=== PATIENT | female | born 1995 | race Caucasian/White ===

== ENCOUNTER 2016-09-13 17:36 | Inpatient (IN) | payer OTHER ==
[~2016-09-13] VITALS: Ht 149.9 cm; Wt 66.7 kg
[2016-09-13] MEDS ORDERED: OXYTOCIN 10 UNITS/ML VIAL IM SCH (18:40)
[2016-09-13] MEDS ORDERED: OXYTOCIN 20 UNITS/LR PREMIX 1,000 ML IV SCH (18:40)
[2016-09-13] MEDS: LACTATED RINGERS 1,000 ML IV SCH (20:15)
[2016-09-13] MEDS ORDERED: NALBUPHINE HYDROCHLORIDE 10 MG/ML VIAL IVP PRN (20:25)
[2016-09-13] MEDS ORDERED: MISOPROSTOL 25 MCG TAB VG PRN (20:25)
[2016-09-13] MEDS ORDERED: CARBOPROST 250 MCG/ML AMP IM PRN (20:25)
[2016-09-13] MEDS ORDERED: METHYLERGONOVINE 0.2 MG/ML AMP IM PRN (20:25)
[2016-09-13] MEDS ORDERED: PROMETHAZINE 25 MG/ML VIAL IVP PRN (20:25)
[2016-09-13] MEDS ORDERED: PRENATAL PLUS I1 TAB PO (20:33)
[2016-09-13] MEDS ORDERED: MISOPROSTOL 25 MCG TAB ONE (20:52)
[2016-09-14] MEDS ORDERED: MISOPROSTOL 25 MCG TAB ONE ×3 (01:11→09:25)
[2016-09-14] MEDS: LACTATED RINGERS 1,000 ML IV SCH ×2 (04:00→12:12)
--- NOTE | 2016-09-14 08:24 | NUR ---
PATIENT HAS BEEN SCREENED AND CATEGORIZED LOW NUTRITION RISK. PATIENT WILL BE SEEN WITHIN 7 DAYS OF ADMISSION. 09/20/[address]
[2016-09-14] MEDS ORDERED: OXYTOCIN 20 UNITS/LR PREMIX 1,000 ML IV ONE (14:01)
[2016-09-14] MEDS ORDERED: NALBUPHINE HYDROCHLORIDE 10 MG/ML VIAL ONE (14:08)
[2016-09-14] MEDS ORDERED: PROMETHAZINE 25 MG/ML VIAL ONE (14:08)
[2016-09-14] MEDS ORDERED: CITRIC ACID/SODIUM CITRATE 30 ML UDC PO SCH (18:00)
[2016-09-14] MEDS ORDERED: OXYTOCIN 10 UNITS/ML VIAL ONE ×2 (18:26→20:20)
[2016-09-14] MEDS ORDERED: CITRIC ACID/SODIUM CITRATE 30 ML UDC ONE (18:31)
[2016-09-14] MEDS ORDERED: ceFAZolin 1,000 MG VIAL ONE ×2 (19:40→20:20)
[2016-09-14] MEDS ORDERED: MORPHINE PRES FREE 10 MG/10 ML AMP IV ONE (19:59)
[2016-09-14] MEDS ORDERED: MORPHINE SULFATE 4 MG/ML SYR IM/IVP PRN (20:00)
[2016-09-14] MEDS ORDERED: ONDANSETRON 4 MG/2 ML VIAL IVP PRN ×2 (20:00→20:45)
[2016-09-14] MEDS ORDERED: ACETAMINOPHEN/CODEINE 300/30MG 1 TAB PO PRN (20:00)
[2016-09-14] MEDS ORDERED: METHYLERGONOVINE 0.2 MG/ML AMP ONE ×2 (20:20→20:41)
[2016-09-14] MEDS ORDERED: ONDANSETRON 4 MG/2 ML VIAL ONE (20:20)
[2016-09-14] MEDS ORDERED: BUPIVACAINE-MPF 0.75% 10 ML VIAL INJ ONE (20:20)
[2016-09-14] MEDS ORDERED: KETOROLAC 30 MG/ML VIAL ONE (20:20)
[2016-09-14] MEDS ORDERED: NALOXONE 0.4 MG/ML VIAL IVP PRN ×2 (20:45)
[2016-09-14] MEDS ORDERED: diphenhydrAMINE 50 MG/ML VIAL IVP PRN (20:45)
[2016-09-14] MEDS ORDERED: OXYTOCIN 20 UNITS/LR PREMIX 1,000 ML IV SCH (20:45)
[2016-09-14] MEDS ORDERED: KETOROLAC 30 MG/ML VIAL IVP PRN (20:45)
[2016-09-15] MEDS ORDERED: TEMAZEPAM 15 MG CAP PO PRN (01:10)
[2016-09-15] MEDS ORDERED: HYDROcodone/APAP 5/325 MG 1 TAB TAB PO PRN (01:10)
[2016-09-15] MEDS ORDERED: MEASLES, MUMPS, AND RUBELLA 1 VIAL SQVAC PRN (01:10)
[2016-09-15] MEDS ORDERED: METHYLERGONOVINE 0.2 MG/ML AMP IM PRN (01:10)
[2016-09-15] MEDS ORDERED: TRIMETHOBENZAMIDE 200 MG/2 ML SYR IM PRN (01:10)
[2016-09-15] MEDS: OXYTOCIN 20 UNITS/LR PREMIX 1,000 ML IV SCH ×2 (04:41→13:34)
[2016-09-15] MEDS: IBUPROFEN 800 MG TAB PO PRN (18:59)
[2016-09-15] MEDS: SIMETHICONE 80 MG TAB.CHEW PO PRN (21:23)
[2016-09-15] MEDS: DOCUSATE SOD/SENNA 50/8.6 MG 1 TAB PO SCH (21:24)
[2016-09-16] MEDS: IBUPROFEN 800 MG TAB PO PRN ×2 (03:45→10:34)
[2016-09-16] MEDS ORDERED: INFLUENZA VIRUS VACCINE QUAD 0.5 ML SYR IMVAC SCH (04:50)
[2016-09-16] MEDS: oxyCODONE/APAP 5/325 MG 1 TAB TAB PO PRN (20:40)
[2016-09-16] MEDS: DOCUSATE SOD/SENNA 50/8.6 MG 1 TAB PO SCH (20:42)
[2016-09-17] MEDS: oxyCODONE/APAP 5/325 MG 1 TAB TAB PO PRN ×2 (08:03→14:40)
[2016-09-17] MEDS: SIMETHICONE 80 MG TAB.CHEW PO PRN (08:04)
== END 2016-09-17 16:30 | disposition home or self-care (01) | DRG 540 ==
LOC: MLD 17:36 → MFCC 09-14 21:46
PROVIDERS: ADMIT Obstetrics & Gynecology; ATTEND Obstetrics & Gynecology
PROC: 3E0P7GC Introduction of Other Therapeutic Substance into Female Reproductive, Via Natural or Artificial Opening (ICD-10-PCS; 2016-09-13)
PROC: 10D00Z1 Extraction of Products of Conception, Low, Open Approach (ICD-10-PCS; principal; 2016-09-14 18:30)
DX: O76 Abnormality in fetal heart rate and rhythm complicating labor and delivery (principal); O61.9 Failed induction of labor, unspecified; Z37.0 Single live birth; Z3A.39 39 weeks gestation of pregnancy

== ENCOUNTER 2018-09-01 15:51 | Emergency (ER) | payer SELFPAY ==
[~2018-09-01] VITALS: Ht 149.9 cm; Wt 52.2 kg
[~2018-09-01 15:51] MED LIST: PNV1TABL8 PO
[2018-09-01 16:10] VITALS: BP 94/48
--- NOTE | 2018-09-01 16:10 | NUR ---
PATIENT TRIAGED. VSS, SENT TO ER LOBBY.
--- NOTE | 2018-09-01 16:11 | NUR ---
PT UNABLE TO PROVIDE URINE AT THIS TIME, GIVEN WATER AND URINE CUP.
--- NOTE | 2018-09-01 16:42 | NUR ---
PT AMBULATES TO BED 3
--- NOTE | 2018-09-01 16:50 | NUR ---
PT C/O /ABD PAIN SINCE LAST NIGHT. REPORTS 4/10 CRAMPING ABD PAIN. PT STATES THAT SHE IS BUT IS UNSURE OF LMP AND # OF WEEKS . . PT DENIES N/V/D; AAOX4, PERRL, WITH EVEN AND STEADY GAIT; LUNGS CLEAR BL, BREATHING UNLABORED; HR EVEN AND REGULAR, BL PERIPHERAL PULSES PRESENT; BS ACTIVE X4. PT DENIES ANY FEVER, CP, SOB, OR COUGH AT THIS TIME; PT STATES 4/10 PAIN AT THIS TIME; VSS; PATIENT POSITIONED FOR COMFORT; HOB ELEVATED; BEDRAILS UP X2; BED DOWN. NO PMH NKA
[2018-09-01 17:44] LABS: BASOPHILS # (AUTO) 0.1 K/uL (0.00-0.22); BASOPHILS % (AUTO) 0.8 % (0.0-2.0); EOSINOPHILS % (AUTO) 0.7 % (0.0-4.0); HEMATOCRIT 39.1 % (36-48); HEMOGLOBIN 13.1 g/dL (12.0-16.0); LYMPHOCYTES # (AUTO) 2.2 K/uL (2.5-16.5); LYMPHOCYTES % (AUTO) 31.5 % (20.5-51.1); MEAN CORPUSCULAR HEMOGLOBIN 30 pg (27-31); MEAN CORPUSCULAR HGB CONC 34 g/dL (33-37); MEAN CORPUSCULAR VOLUME 90.4 fL (80-94); MONOCYTES # (AUTO) 0.6 K/uL (0.8-1.0); MONOCYTES % (AUTO) 7.8 % (1.7-9.3); NEUTROPHILS # (AUTO) 4.2 K/uL (1.8-7.7); NEUTROPHILS % (AUTO) 59.2 % (42.2-75.2); PLATELET COUNT (AUTO) 181 K/uL (140-450); RED BLOOD CELL COUNT(AUTO) 4.33 MIL/uL (4.20-5.40); RED CELL DISTRIBUTION WIDTH 12.3 % (11.6-13.7); WHITE BLOOD COUNT (AUTO) 7.1 K/uL (4.8-10.8)
[2018-09-01 18:53] LABS: BILIRUBIN,URINE NEGATIVE (NEGATIVE); BLOOD, URINE 1+ (NEGATIVE); COLOR,URINE YELLOW (YELLOW); LEUKOCYTE ESTERASE ,URINE NEGATIVE (NEGATIVE); NITRITE, URINE POSITIVE (NEGATIVE); PH,URINE 6.5 (5.0-9.0); UGLUCOSE NEGATIVE (NEGATIVE)
[2018-09-01 18:55] LABS: APPEARANCE,URINE SLIGHTLY CLOUDY (CLEAR)
[2018-09-01 19:03] LABS: RBC,URINE 3-10 (FEW) /HPF (0-5)
--- NOTE | 2018-09-01 19:15 | NUR ---
Patient discharged with v/s stable. Written and verbal after care instructions given and explained. Patient alert, oriented and verbalized understanding of instructions. Ambulatory with steady gait. All questions addressed prior to discharge. ID band removed. Patient advised to follow up with PMD. Rx of [facility] Multi+DHA Softgel given. Patient educated on indication of medication including possible reaction and side effects. Opportunity to ask questions provided and answered.
[2018-09-01 19:20] VITALS: BP 102/69
== END 2018-09-01 19:20 | disposition home or self-care (01) ==
LOC: MED 15:51
DX: O26.891 Other specified pregnancy related conditions, first trimester (principal); R10.9 Unspecified abdominal pain; Z79.899 Other long term (current) drug therapy; Z3A.08 8 weeks gestation of pregnancy
CPT/HCPCS: 36415; 76817; 81001; 81025; 84702; 85025; 86900; 86901; 87086; 99284; Q0092